=== PATIENT | female | born 1975 | race African-American/Black ===

== ENCOUNTER 2024-07-15 02:21 | Emergency (ER) | payer BC, MEDICAID, OTHER ==
[~2024-07-15] VITALS: Ht 167.6 cm; Wt 73.0 kg
[2024-07-15] MEDS: METHYLPREDNISOLONE SOD SUCC 125MG/2ML (ACT-O-VIAL) IV STA (03:42)
[2024-07-15] MEDS: ALBUTEROL (0.083%) 2.5MG/3ML NEB HHN STA (04:11)
[2024-07-15 04:12] VITALS: PULSE 84; RESP 22; O2SAT 93
[2024-07-15] MEDS: IPRATROPIUM BROMIDE (0.02%) 0.5MG/2.5ML NEB HHN STA (04:12)
[2024-07-15 04:36] LABS: BASOPHILS % 0.9 % (0.0-2.0); HEMATOCRIT. 39.2 % (36.0-48.0); HEMOGLOBIN. 12.8 g/dL (12.0-16.0); LYMPHOCYTES % 25.9 % (20.0-50.0); MEAN CORPUSCULAR HEMOGLOBIN 29.8 pg (28.0-32.0); MEAN CORPUSCULAR HGB CONC 32.7 g/dL (31.0-37.0); MEAN CORPUSCULAR VOLUME 91.1 fL (81.0-99.0); MEAN PLATELET VOLUME 8.2 fl (7.4-10.4); MONOCYTES % 7.6 % (2.0-8.0); NEUTROPHILS % 63.6 % (40.0-76.0); PLATELET 330 x1000/uL (130-400); RED CELL DISTRIBUTION WIDTH 14.4 % (11.6-14.6); WHITE BLOOD COUNT 9.1 x1000/uL (4.5-11.0)
[2024-07-15 04:39] LABS: CHLORIDE 107 mEq/L (98-107); POTASSIUM 3.7 mEq/L (3.5-5.1); SODIUM 141 mEq/L (136-145)
[2024-07-15 04:40] LABS: CALCIUM 9.1 mg/dL (8.7-10.4); CARBON DIOXIDE 25 mEq/L (21-32)
[2024-07-15 04:45] LABS: CREATININE 0.8 mg/dL (0.6-1.0); ETHANOL BLOOD < 10 mg/dL (<10); GLUCOSE 121 mg/dL (70-105); TROPONIN I HIGH SENSITIVITY 5 ng/L (3.0-34); UREA NITROGEN BLOOD 14 mg/dL (9-23)
[2024-07-15 04:50] LABS: PARTIAL THROMBOPLASTIN TIME 27.9 sec (23.4-31.0); PROTHROMBIN TIME 10.4 sec (9.6-11.0)
[2024-07-15] MEDS ORDERED: ALBU90AE INH (05:35)
[2024-07-15] MEDS ORDERED: P20 MT (05:35)
[2024-07-15 07:32] VITALS: BP 145/82; PULSE 85; RESP 18; TEMP 36.9; O2SAT 95
== END 2024-07-15 07:33 | disposition home or self-care (01) ==
LOC: ER 02:31
DX: R05.9 Cough, unspecified (principal); J44.89 Other specified chronic obstructive pulmonary disease; I10 Essential (primary) hypertension; Z86.73 Personal history of transient ischemic attack (TIA), and cerebral infarction without residual deficits
CPT/HCPCS: 80048; 80320; 83880; 85025; 85610; 85730; 84484; 36415; 71045; 94640; 93005; 96374; 99285; J2919; Z7610 ×6; A4606; G0480

== ENCOUNTER 2024-08-10 08:49 | Emergency (ER) | payer BC ==
[~2024-08-10] VITALS: Ht 170.2 cm; Wt 90.7 kg
[~2024-08-10 08:49] MED LIST: ALBU90AE INH; P20 MT
[2024-08-10 09:10] VITALS: PULSE 105; RESP 28; O2SAT 94
[2024-08-10] MEDS: ALBUTEROL (0.083%) 2.5MG/3ML NEB HHN STA (09:10)
[2024-08-10] MEDS: IPRATROPIUM BROMIDE (0.02%) 0.5MG/2.5ML NEB HHN STA (09:10)
[2024-08-10] MEDS: METHYLPREDNISOLONE SOD SUCC 125MG/2ML (ACT-O-VIAL) IV STA (09:24)
[2024-08-10] MEDS: MAGNESIUM 2 G PREMIX 50 ML IV ONE (09:24)
[2024-08-10] MEDS ORDERED: P50 MT (11:14)
[2024-08-10] MEDS ORDERED: ALBU90AE INH (11:14)
[2024-08-10 11:23] VITALS: BP 162/90; PULSE 98; RESP 21; TEMP 36.7; O2SAT 92
== END 2024-08-10 11:35 | disposition home or self-care (01) ==
LOC: ER 08:49
DX: J44.9 Chronic obstructive pulmonary disease, unspecified (principal); I10 Essential (primary) hypertension; Z86.73 Personal history of transient ischemic attack (TIA), and cerebral infarction without residual deficits; Z79.899 Other long term (current) drug therapy; Z88.0 Allergy status to penicillin
CPT/HCPCS: 94640; 93005; 96365; 96375; 99284; J3475; J2919; Z7610 ×5; 94070

== ENCOUNTER 2024-11-16 22:11 | Inpatient (IN) | payer BC ==
[~2024-11-16] VITALS: Ht 172.7 cm; Wt 94.8 kg
[~2024-11-16 22:11] MED LIST changes: +P50 MT
[2024-11-16 22:18] VITALS: O2SAT 97
[2024-11-16 22:20] VITALS: RESP 32
[2024-11-16 22:39] VITALS: RESP 21
[2024-11-16] MEDS: ALBUTEROL (0.083%) 2.5MG/3ML NEB HHN ONE (22:39)
[2024-11-16] MEDS: IPRATROPIUM BROMIDE (0.02%) 0.5MG/2.5ML NEB HHN ONE (22:39)
[2024-11-16 23:11] LABS: BASOPHILS % 0.5 % (0.0-2.0); EOSINOPHILS % 5.1 % (0.0-5.0); HEMATOCRIT. 41.3 % (36.0-48.0); HEMOGLOBIN. 13.4 g/dL (12.0-16.0); LYMPHOCYTES % 31.8 % (20.0-50.0); MEAN PLATELET VOLUME 8.2 fl (7.4-10.4); MONOCYTES % 8.6 % (2.0-8.0); NEUTROPHILS % 54.0 % (40.0-76.0); PLATELET 297 x1000/uL (130-400); RED BLOOD CELL COUNT 4.48 mill/uL (4.2-5.4); RED CELL DISTRIBUTION WIDTH 14.4 % (11.6-14.6)
[2024-11-16 23:20] LABS: INR 1.0
[2024-11-16 23:25] LABS: CREATININE 1.1 mg/dL (0.6-1.0)
[2024-11-16 23:26] LABS: ETHANOL BLOOD < 10 mg/dL (<10); TROPONIN I HIGH SENSITIVITY 4 ng/L (3.0-34); UREA NITROGEN BLOOD 18 mg/dL (9-23)
[2024-11-16 23:27] LABS: ASPARTATE AMINOTRANSFERASE 20 IU/L (<34)
[2024-11-16 23:28] LABS: BILIRUBIN DIRECT < 0.1 mg/dL (<=3.0); BILIRUBIN TOTAL 0.2 mg/dL (0.1-1.0); PROTEIN TOTAL 7.2 g/dL (6.0-8.3)
[2024-11-16] MEDS: SODIUM CHLORIDE 0.9% 1,000 ML IV ONE (23:33)
[2024-11-16] MEDS: METHYLPREDNISOLONE SOD SUCC 125MG/2ML (ACT-O-VIAL) IV ONE (23:33)
[2024-11-17] MEDS ORDERED: DOCUSATE SODIUM 100MG CAPSULE PO PRN (00:30)
[2024-11-17] MEDS ORDERED: ACETAMINOPHEN 325MG TABLET PO PRN ×2 (00:30)
[2024-11-17] MEDS ORDERED: GUAIFENESIN 200MG/10ML SUGAR FREE UDC PO PRN (00:30)
[2024-11-17] MEDS ORDERED: ONDANSETRON HCL 4MG/2ML INJ IV PRN (00:30)
[2024-11-17] MEDS ORDERED: DEXTROSE 50% WATER 50ML SYRINGE IV PRN (01:00)
[2024-11-17 03:00] VITALS: BP 148/105; PULSE 109; RESP 22; TEMP 37.0296
[2024-11-17] MEDS: SODIUM CHLORIDE 0.9% 1,000 ML IV SCH (03:27)
[2024-11-17 04:00] VITALS: BP 136/111; PULSE 88; RESP 16; TEMP 37.1; O2SAT 94
[2024-11-17] MEDS: BLOOD SUGAR DIAGNOSTIC STRIP TEST SCH (05:45)
[2024-11-17 08:00] VITALS: BP 160/88; PULSE 88; RESP 22; TEMP 36.8; O2SAT 96
[2024-11-17] MEDS ORDERED: AMLO10TA80 PO (08:58)
[2024-11-17] MEDS ORDERED: ATOR40TA70 PO (08:58)
[2024-11-17] MEDS: GUAIFENESIN 600MG ER TABLET PO SCH (09:00)
[2024-11-17] MEDS: METHYLPREDNISOLONE SOD SUCC 125MG/2ML (ACT-O-VIAL) IV SCH (09:00)
[2024-11-17] MEDS: MAGNESIUM 2 G PREMIX 50 ML IV ONE (09:00)
[2024-11-17] MEDS ORDERED: IPRATROPIUM/ALBUTEROL 0.5-3(2.5)MG/3ML NEB HHN PRN (09:00)
[2024-11-17] MEDS: AMLODIPINE 10MG TABLET PO SCH (10:03)
[2024-11-17] MEDS: CLONIDINE 0.1MG TABLET PO PRN (10:33)
[2024-11-17] MEDS ORDERED: LISI20TA31 MT (10:41)
[2024-11-17] MEDS ORDERED: HYDR50TA40 MT (10:41)
[2024-11-17] MEDS ORDERED: IPRATROPIUM/ALBUTEROL 0.5-3(2.5)MG/3ML NEB HHN SCH (12:00)
[2024-11-17] MEDS ORDERED: ATORVASTATIN CALCIUM 40MG TABLET PO SCH (21:00)
== END 2024-11-17 16:57 | disposition left against medical advice (07) | DRG 189 ==
LOC: ER 22:11 → 3WST 23:50 → EDBEDREQ 11-17 00:40 → EDBEDREQSVC 11-17 00:40 → EDBEDREQTM 11-17 00:40 → ENRESERV 11-17 00:56
PROVIDERS: ADMIT Internal Medicine; ATTEND Internal Medicine
PROC: 5A09357 Assistance with Respiratory Ventilation, Less than 24 Consecutive Hours, Continuous Positive Airway Pressure (ICD-10-PCS; principal; 2024-11-16)
DX: J96.00 Acute respiratory failure, unspecified whether with hypoxia or hypercapnia (principal); J45.901 Unspecified asthma with (acute) exacerbation; J44.1 Chronic obstructive pulmonary disease with (acute) exacerbation; N17.9 Acute kidney failure, unspecified; N18.9 Chronic kidney disease, unspecified; E16.2 Hypoglycemia, unspecified; E66.01 Morbid (severe) obesity due to excess calories; F17.210 Nicotine dependence, cigarettes, uncomplicated; I12.9 Hypertensive chronic kidney disease with stage 1 through stage 4 chronic kidney disease, or unspecified chronic kidney disease; R73.9 Hyperglycemia, unspecified; Z53.29 Procedure and treatment not carried out because of patient's decision for other reasons; F19.10 Other psychoactive substance abuse, uncomplicated; Z79.899 Other long term (current) drug therapy; Z86.73 Personal history of transient ischemic attack (TIA), and cerebral infarction without residual deficits; Z88.0 Allergy status to penicillin; Z83.3 Family history of diabetes mellitus; Z68.31 Body mass index [BMI] 31.0-31.9, adult
CPT/HCPCS: 36415; 71045; 80048; 80076; 80320; 82962; 83036; 83735; 83880; 84484; 85025; 93005; 94070; 94640; 94660; 94664; 98960; 99285; J2919; J7030; G0480